=== PATIENT | female | born 1945 | race Caucasian/White ===

== ENCOUNTER → 2018-10-29 | Outpatient (CLI) | payer MEDICARE, OTHER ==
[~2018-10-29] MED LIST: Diflucan100 MG PO; Norco 5-325 Ta1 EACH PO; Percocet 5-3251 EACH PO; Protonix40 MG PO; Robaxin500 MG PO; VENL37.5ER PO; Zoloft50 MG PO
== END | disposition home or self-care (01) ==
LOC: LAB 11:45 → LAB SHORT 11:45
DX: N39.0 Urinary tract infection, site not specified (principal)
CPT/HCPCS: 87077; 87086; 87186

== ENCOUNTER → 2019-03-29 | Outpatient (CLI) | payer MEDICARE, OTHER | END | disposition home or self-care (01) | LOC: LAB 16:49 → LAB SHORT 16:49 | DX: N39.0 Urinary tract infection, site not specified (principal) | CPT/HCPCS: 87086 ==

== ENCOUNTER 2019-11-24 09:06 | Day surgery (SDC) | payer MEDICARE, OTHER ==
[~2019-11-24] VITALS: Ht 157.5 cm; Wt 75.9 kg
[~2019-11-24 09:06] MED LIST changes: +ATOR40TA PO; +CALCIUM + D3 E1 EACH PO; +Co Q-1010 MG PO; +Estrace Vagin42.5 GM; +PANT40 PO; +TIZANIDINE HCL2 MG; +VENL150ER PO; +[UNRECOGNIZED DRUG - OTHER] PO
== END 2019-11-24 11:21 | disposition home or self-care (01) ==
LOC: ORSCSDS 09:06
PROVIDERS: Internal Medicine Gastroenterology
PROC: 0DBN8ZX Excision of Sigmoid Colon, Via Natural or Artificial Opening Endoscopic, Diagnostic (ICD-10-PCS; principal; 2019-11-24 10:15)
DX: Z12.11 Encounter for screening for malignant neoplasm of colon (principal); K63.5 Polyp of colon; K64.8 Other hemorrhoids; K57.30 Diverticulosis of large intestine without perforation or abscess without bleeding; Z83.71 Family history of colonic polyps; Z86.010 Personal history of colon polyps; F41.8 Other specified anxiety disorders; E78.00 Pure hypercholesterolemia, unspecified; Z79.899 Other long term (current) drug therapy
CPT/HCPCS: 88305; J2704; J7120

== ENCOUNTER 2020-11-13 06:19 | Day surgery (SDC) | payer MEDICARE, OTHER ==
[~2020-11-13] VITALS: Ht 157.5 cm; Wt 79.1 kg
[~2020-11-13 06:19] MED LIST changes: +CONEST.625; +Propranolol HCl60 MG PO
[2020-11-13] MEDS ORDERED: SERT50 PO (06:40)
--- NOTE | 2020-11-13 07:35 | NUR ---
11/13/20 0735 [facility] Hidal[facility] PT NOTES A SHELLFISH/IODINE ALLERGY. CONCENT FROM BOTH DR. DURON AND PT TO USE IODINE SOLUTION. PREP RINSED THOROUGHLY TO PREVENT COMPLICATION. PT WITH MOXICILLIN ROGER. PER DR. DURON NO ANTIBIOTIC WILL BE ADMINISTERED DURING CASE.
== END 2020-11-13 08:25 | disposition home or self-care (01) ==
LOC: ORSCSDS 06:19
PROVIDERS: Ophthalmology
PROC: 08RK3JZ Replacement of Left Lens with Synthetic Substitute, Percutaneous Approach (ICD-10-PCS; principal; 2020-11-13 07:30)
DX: H25.12 Age-related nuclear cataract, left eye (principal); K21.9 Gastro-esophageal reflux disease without esophagitis; Z79.899 Other long term (current) drug therapy
CPT/HCPCS: J2001; J2250; J3010; J3301; J7040; V2632

== ENCOUNTER 2020-12-25 06:20 | Day surgery (SDC) | payer MEDICARE, OTHER ==
[~2020-12-25] VITALS: Ht 157.5 cm; Wt 78.9 kg
[~2020-12-25 06:20] MED LIST changes: +PROP60 PO; +SERT50 PO; +TIZA4 PO
[2020-12-25] MEDS ORDERED: Flexeril5 MG PO (11:54)
[2020-12-25] MEDS ORDERED: ACET500 PO (11:54)
--- NOTE | 2020-12-25 14:04 | NUR ---
12/25/20 1404 Tracy Tompkins DELAYED CHARTING R/T [facility] BEING OFFLINE. PAPER CHARTING COMPLETED UNTIL MEDITE UP AND RUNNING.
== END 2020-12-25 08:24 | disposition home or self-care (01) ==
LOC: ORSCSDS 06:20
PROVIDERS: Ophthalmology
PROC: 08RJ3JZ Replacement of Right Lens with Synthetic Substitute, Percutaneous Approach (ICD-10-PCS; principal; 2020-12-25 07:30)
DX: H25.11 Age-related nuclear cataract, right eye (principal); K21.9 Gastro-esophageal reflux disease without esophagitis; Z86.718 Personal history of other venous thrombosis and embolism; Z79.899 Other long term (current) drug therapy
CPT/HCPCS: J2001; J2250; J3010; J3301; J7040; V2632

== ENCOUNTER → 2021-07-17 | Outpatient (CLI) | payer MEDICARE, OTHER ==
[~2021-07-17] MED LIST changes: +ACET500 PO; +Flexeril5 MG PO
== END | disposition home or self-care (01) ==
LOC: LAB 15:20 → LAB SHORT 15:20
DX: N39.0 Urinary tract infection, site not specified (principal)
CPT/HCPCS: 87086

== ENCOUNTER → 2021-11-07 | Outpatient (CLI) | payer MEDICARE, OTHER ==
[~2021-11-07] MED LIST changes: +ONDA4ODT MM
== END | disposition home or self-care (01) ==
LOC: LAB 16:01
DX: R35.0 Frequency of micturition (principal)
CPT/HCPCS: 87077; 87086; 87186

== ENCOUNTER 2021-12-17 11:40 | Emergency (ER) | payer MEDICARE, OTHER ==
[~2021-12-17] VITALS: Ht 157.5 cm; Wt 72.6 kg
[~2021-12-17 11:40] MED LIST changes: -ONDA4ODT MM
[2021-12-17 13:32] LABS: BASOPHILS ABSOLUTE AUTO 0.01 K/mm3 (0.00-0.23); BASOPHILS PERCENT AUTO 0 % (0-2); EOSINOPHILS PERCENT AUTO 0 % (0-6); Hematocrit 43.5 % (33.0-51.0); Hemoglobin 14.1 g/dL (11.5-16.0); IMMATURE GRAN ABSOLUTE AUTO 0.03 K/mm3 (0.00-0.10); IMMATURE GRAN PERCENT AUTO 1 % (0-1); LYMPHOCYTES ABSOLUTE AUTO 0.56 K/mm3 (0.84-5.20); LYMPHOCYTES PERCENT AUTO 12 % (21-46); MONOCYTES ABSOLUTE AUTO 0.52 K/mm3 (0.16-1.47); MONOCYTES PERCENT AUTO 11 % (4-13); Mean Corpuscular HGB 29.5 pg (26.0-34.0); Mean Corpuscular HGB Conc 32.4 g/dL (31.5-36.5); Mean Corpuscular Volume 91 fL (80-100); Mean Platelet Volume 10.2 fL (9.1-12.4); NEUTROPHILS ABSOLUTE AUTO 3.43 K/mm3 (1.96-9.15); NEUTROPHILS PERCENT AUTO 75 % (41-73); Platelet Count 284 K/mm3 (150-400); RDW Coefficient Variation 14.7 % (11.7-14.2); RDW Standard Deviation 49.3 fL (35.1-46.3); Red Blood Cell Count 4.78 M/mm3 (3.80-5.20); White Blood Cell Count 4.55 K/mm3 (4.00-11.30)
[2021-12-17 13:56] LABS: Albumin, Blood 2.4 g/dL (3.4-5.0); Albumin/Globulin Ratio 0.5 (0.8-1.8); Bilirubin, Total 0.5 mg/dL (0.1-1.0); Bun/Creatinine Ratio 13.3 (12.0-20.0); Calcium, Blood 8.3 mg/dL (8.5-10.1); Creatinine, Blood 0.97 mg/dL (0.40-1.00); Globulin, Blood 4.9 g/dL (2.2-4.0); Total Protein, Blood 7.3 g/dL (6.4-8.2)
[2021-12-17] MEDS ORDERED: ONDA4ODT MM (15:00)
== END 2021-12-17 15:12 | disposition home or self-care (01) ==
LOC: ER 11:40
PROVIDERS: Physician Assistant
DX: U07.1 COVID-19 (principal); Z88.1 Allergy status to other antibiotic agents; Z88.8 Allergy status to other drugs, medicaments and biological substances; Z91.040 Latex allergy status; Z91.013 Allergy to seafood; Z88.6 Allergy status to analgesic agent; Z79.899 Other long term (current) drug therapy
CPT/HCPCS: 36415; 80053; 83690; 85025; 99283; J2405

== ENCOUNTER 2023-02-15 13:43 | Emergency (ER) | payer OTHER ==
[~2023-02-15] VITALS: Ht 154.9 cm; Wt 70.3 kg
[~2023-02-15 13:43] MED LIST changes: +B-12500 MC1; +ONDA4ODT MM; +PRAV20; +PROBIOTIC1 EA13; +VENL150ER
[2023-02-15] MEDS ORDERED: HYDR1TAB94 PO (16:37)
== END 2023-02-15 16:50 | disposition home or self-care (01) ==
LOC: ER 13:43
DX: K08.89 Other specified disorders of teeth and supporting structures (principal); K06.9 Disorder of gingiva and edentulous alveolar ridge, unspecified; Z88.0 Allergy status to penicillin; Z88.8 Allergy status to other drugs, medicaments and biological substances; Z88.5 Allergy status to narcotic agent; Z91.040 Latex allergy status; Z91.013 Allergy to seafood; Z79.899 Other long term (current) drug therapy; Z98.890 Other specified postprocedural states
CPT/HCPCS: 99282; A9270

== ENCOUNTER → 2023-05-13 | Outpatient (CLI) | payer OTHER ==
[~2023-05-13] MED LIST changes: +HYDR1TAB94 PO
[2023-05-14 06:01] LABS: Adenovirus F 40/41 Not Detected (NOT DETECT); Astrovirus Not Detected (NOT DETECT); Campylobacter Sp Not Detected (NOT DETECT); Cryptosporidium Not Detected (NOT DETECT); Cyclospora Cayetanensis Not Detected (NOT DETECT); E. Coli O157 Not Detected (NOT DETECT); Entamoeba Histolytica Not Detected (NOT DETECT); Enteroaggregative E. coli-EAEC Not Detected (NOT DETECT); Enteropathogenic E. coli-EPEC Not Detected (NOT DETECT); Enterotoxigenic E. coli-ETEC Not Detected (NOT DETECT); Giardia Lamblia Not Detected (NOT DETECT); Norovirus GI/GII Not Detected (NOT DETECT); Plesiomonas Shigelloides Not Detected (NOT DETECT); Rotavirus A Not Detected (NOT DETECT); Salmonella Sp Not Detected (NOT DETECT); Sapovirus Not Detected (NOT DETECT); Shiga Toxin-prod E. coli-STEC Not Detected (NOT DETECT); Shigella/Enteroin E. coli-EIEC Not Detected (NOT DETECT); Vibrio Cholerae Not Detected (NOT DETECT); Vibrio Sp Not Detected (NOT DETECT); Yersinia Enterocolitica Not Detected (NOT DETECT)
== END | disposition home or self-care (01) ==
LOC: LAB SHORT 16:32 → LAB 16:32 → LAB FUT 04-23 13:10
PROVIDERS: Family Medicine
DX: R19.7 Diarrhea, unspecified (principal)
CPT/HCPCS: 87507

== ENCOUNTER 2024-01-06 16:51 | Emergency (ER) | payer OTHER ==
[~2024-01-06] VITALS: Ht 154.9 cm; Wt 70.3 kg
[2024-01-06 17:30] VITALS: BP 155/61
[2024-01-06] MEDS ORDERED: MONDOXYNE NL100 MG PO (17:54)
[2024-01-06] MEDS ORDERED: EFFEXOR XR150 MG PO (17:54)
[2024-01-06] MEDS ORDERED: Ketorolac Tromethamine 30mg Vial IM ONE (18:00)
[2024-01-06] MEDS ORDERED: Ultram50 MG PO (18:26)
== END 2024-01-06 18:30 | disposition home or self-care (01) ==
LOC: ER 16:51
DX: S73.101A Unspecified sprain of right hip, initial encounter (principal); S80.01XA Contusion of right knee, initial encounter; Z79.899 Other long term (current) drug therapy; Z88.0 Allergy status to penicillin; Z88.1 Allergy status to other antibiotic agents; Z88.5 Allergy status to narcotic agent; Z88.6 Allergy status to analgesic agent; Z88.8 Allergy status to other drugs, medicaments and biological substances; Z91.013 Allergy to seafood; Z91.040 Latex allergy status; Z91.041 Radiographic dye allergy status; W01.0XXA Fall on same level from slipping, tripping and stumbling without subsequent striking against object, initial encounter; Y92.129 Unspecified place in nursing home as the place of occurrence of the external cause
CPT/HCPCS: 73562-RT; 96372; 99283-25; J1885

== ENCOUNTER 2024-07-01 07:44 | Emergency (ER) | payer OTHER ==
[~2024-07-01] VITALS: Ht 157.5 cm; Wt 73.9 kg
[~2024-07-01 07:44] MED LIST changes: +EFFEXOR XR150 MG PO; +MONDOXYNE NL100 MG PO; +Ultram50 MG PO
[2024-07-01] MEDS ORDERED: ATOR40TA PO (08:48)
[2024-07-01] MEDS ORDERED: Metoclopramide HCl 5MG / ML 2ML Vial IM ONE (09:00)
[2024-07-01] MEDS ORDERED: Ketorolac Tromethamine 30mg Vial IM ONE (09:00)
[2024-07-01] MEDS ORDERED: Flonase 0.05% N16 GM (10:16)
[2024-07-01] MEDS ORDERED: PSEU120ER PO (10:16)
[2024-07-01 10:30] VITALS: BP 145/73
== END 2024-07-01 11:00 | disposition home or self-care (01) ==
LOC: ER 07:44
DX: R51.9 Headache, unspecified (principal)
CPT/HCPCS: 70450; 96372; 99284-25; J1885; J2765